=== PATIENT | female | born 1995 | race African-American/Black ===

== ENCOUNTER → 2017-02-27 | Outpatient (CLI) | payer OTHER ==
--- NOTE | 2017-03-04 10:48 | REP ---
THREE-PHASE BONE SCAN: HISTORY: Left-sided monae pain. Question monae splints or stress fractures. TECHNIQUE: 21.8 mCi technetium 99m MDP is injected and standard three-phase imaging of the calves is acquired. SCINTIGRAPHIC FINDINGS: The anterior and posterior flow study is normal. Blood pool images show no definite abnormality. Delayed scan images however demonstrate abnormal uptake in the posterior and medial cortex of each distal tibia diaphyseal region consistent with stress periostitis. This is a little more prominent on the left than the right. No evidence of established stress fracture on either side. IMPRESSION: Stress periostitis or monae splint pattern bilaterally affecting the posterior medial tibia. Signed by Tyrese Christian MD 03/04/2017 01:02 P
== END ==
LOC: M RAD 10:07
PROVIDERS: ATTEND Student in an Organized Health Care Education/Training Program
DX: M79.605 Pain in left leg (principal)